=== PATIENT | male | born 1980 | race Caucasian/White ===

== ENCOUNTER 2017-06-11 11:08 | Emergency (ER) | payer SELFPAY | END 2017-06-11 12:29 | disposition home or self-care (01) | LOC: ERS 11:08 | DX: M54.5 Low back pain (principal); G89.29 Other chronic pain; I10 Essential (primary) hypertension; F31.9 Bipolar disorder, unspecified; F20.9 Schizophrenia, unspecified; F90.9 Attention-deficit hyperactivity disorder, unspecified type; F41.9 Anxiety disorder, unspecified; F43.10 Post-traumatic stress disorder, unspecified; F17.210 Nicotine dependence, cigarettes, uncomplicated; X50.1XXA Overexertion from prolonged static or awkward postures, initial encounter | CPT/HCPCS: 99283 ==

== ENCOUNTER 2018-01-04 14:09 | Observation (INO) | payer SELFPAY ==
--- NOTE | 2018-01-04 14:49 | RAD ---
PORTABLE CHEST 1 VIEW: DATE: 01/04/18. TIME: 2:29 p.m. HISTORY: Abdominal pain. FINDINGS: The heart size is normal. No focal areas of consolidation, pneumothoraces, or pleural effusions are seen. IMPRESSION: No radiographic evidence of acute cardiopulmonary process. POS: [facility]
[2018-01-04] MEDS ORDERED: Dicyclomine 20 MG TAB ONE (15:23)
[2018-01-04 16:10] LABS: Acetaminophen Less than 6.0 mcg/mL (10.0-30.0); Alcohol Less than 10 mg/dL (Less than 10); Salicylate Less than 8.0 mg/dL (15.0-30.0)
[2018-01-04 16:15] LABS: Bilirubin Negative (Negative); Blood, Urine Negative (Negative); Clarity CLEAR (Clear); Glucose, Urine (Dipstick) Negative (Negative); Leukocyte Negative (Negative); Nitrite Negative (Negative); Protein, Urine (Dipstick) Negative (Neg-Trace); Urobilinogen 0.2 mg/dL (0.2-1.0)
[2018-01-04 16:21] LABS: Specific Gravity, Urine Greater than 1.060 (1.002-1.036)
[2018-01-04 16:28] LABS: Amphetamine Not Detected (NotDetected); Barbiturates Screen Not Detected (NotDetected); Benzodiazepine Screen Not Detected (NotDetected); Cocaine Metabolite Screen Not Detected (NotDetected); Medtox Control Line Valid? VALID (VALID); Medtox Reader # READER 1; Methadone Not Detected (NotDetected); Methamphetamine Not Detected (NotDetected); Opiate Screen Detected (NotDetected); Oxycodone Screen Not Detected (NotDetected); Phencyclidine (PCP) Not Detected (NotDetected); THC/Cannabinoid Screen Detected (NotDetected); Tricyclic Screen Not Detected (NotDetected)
[2018-01-04] MEDS ORDERED: Ondansetron ODT 4 MG TAB SL PRN (17:17)
[2018-01-04] MEDS ORDERED: Ondansetron HCl/PF 4 MG/2 ML Vial IVP PRN (17:17)
[2018-01-04] MEDS ORDERED: HYDROcodone/Acetaminophen 5/325 mg Tablet PO PRN ×2 (17:17)
[2018-01-04] MEDS ORDERED: Sodium Chloride 0.9% 1,000 ML IV SCH (17:17)
[2018-01-04] MEDS ORDERED: Acetaminophen 325 MG TAB PO PRN (17:17)
[2018-01-04 17:31] VITALS: BMI 37.5
[2018-01-04] MEDS: Sodium Chloride 0.9% 1,000 ML IV SCH (18:15)
[2018-01-04] MEDS: Morphine 4 MG/ML VIAL SLOW IVP PRN (20:29)
[2018-01-04] MEDS ORDERED: Ketorolac Tromethamine 30 MG/ML VIAL IVP SCH (23:59)
[2018-01-05] MEDS: Morphine 4 MG/ML VIAL SLOW IVP PRN ×3 (01:18→09:55)
--- NOTE | 2018-01-05 01:58 | HP ---
DATE OF ADMISSION: 01/04/2018 CHIEF COMPLAINT: Abdominal pain. HISTORY OF PRESENT ILLNESS: Mr. Wallace is a 37-year-old, white male with past medical history of schi zophrenia, came because of acute onset of abdominal pain going on for the last 3 days. His pain is l frieda severe cramping started in the left flank and radiates to the front of the abdomen and left lower quadrant. He says the pain is constant and he waited for 2 to 3 days at home and then decided to go to the hospital. He went into the hospital where he was evaluated. He had an elevated white cell c ount, but no fever. The ER doctor in the outside hospital felt he has sepsis and peritonitis. He wa s transferred to the [facility] ER where he was evaluated and found to have leukocytosis. Otherwis e, everything was unremarkable including CT scan of the abdomen. He is being admitted because of his leukocytosis and abdominal pain. The patient also says he has got some nausea, vomiting, and diarrh ea. PAST MEDICAL HISTORY: Schizophrenia. PAST SURGICAL HISTORY: Nothing significant. CURRENT MEDICATIONS: The patient receives the injectable medication from [facility] twice monthly. ALLERGIES: To LITHIUM, SEROQUEL, SULFA. SOCIAL HISTORY: Patient lives with family. Smokes 1-2 packs a day. No history of alcohol intake. REVIEW OF SYSTEMS: Unremarkable except for the abdominal pain, nausea, vomiting. PHYSICAL EXAMINATION: GENERAL: The patient is alert, awake, oriented x3. VITAL SIGNS: Temperature 98, pulse 90, respirations 20, blood pressure 120/70. HEENT: Head is normocephalic, atraumatic. Pupils equal and reactive. Nasopharynx is pink, moist. NECK: Supple. No JVD. LUNGS: Bilateral air entry, no rales, no rhonchi. CARDIOVASCULAR: S1, S2 regular. ABDOMEN: Soft. No guarding. No rigidity. Tender in the lower abdomen, left lower quadrant and lef t flank area. CENTRAL NERVOUS SYSTEM: No focal deficit. LABORATORY AND X-RAY FINDINGS: CBC shows WBC 21.8, hemoglobin 17, hematocrit 52, platelets 412. Dif ferential count, neutrophils 70%, bands 2%. Metabolic panel: Sodium 135, potassium 3.3, chloride 97 , BUN 27, creatinine 1.7, glucose 123. Lactic acid 2.8. Urinalysis showed wbc's 0-3, rbc's 0-3, no bacteria. Urine drug screen positive for cannabinoids and opiates. Chest x-ray negative. CT scan o f the abdomen unremarkable except diffuse hepatic steatosis. EKG shows normal sinus rhythm, no acute ST-T wave changes seen. ASSESSMENT: 1. Abdominal pain, left flank pain, rule out nephrolithiasis. 2. Leukocytosis. PLAN: 1. Vital signs q.4 hours. 2. Activity: As tolerated. 3. Allergies: NKDA. 4. IV fluids, normal saline at 100 mL per hour. 5. Levaquin 750 IV piggyback daily. 6. Morphine 2 mg IVP q.6 hours p.r.n. 7. Urology consult. 8. CT scan of abdomen and stone protocol.
[2018-01-05] MEDS: Sodium Chloride 0.9% 1,000 ML IV SCH (04:32)
[2018-01-05 04:51] LABS: #Basophils 0.1 thou/uL (0.0-0.2); #Eosinphils 0.4 thou/uL (0.0-0.7); #Lymphocytes 4.2 thou/uL (1.20-3.40); #Monocytes 1.3 thou/uL (0.11-0.59); #Neutrophils 7.1 thou/uL (1.40-6.50); %Basophils 0.4 % (0.0-1.0); %Eosinophils 3.2 % (0.0-10.0); %Lymphocytes 32.1 % (21.0-51.0); %Monocytes 9.8 % (0.0-10.0); %Neutrophils 54.5 % (42.0-75.0); Hemoglobin 13.7 g/dL (14.0-18.0); Mean Corpuscular HGB CONC 35.1 g/dL (32.0-36.0); Mean Corpuscular Hemoglobin 32.9 pg (27.0-31.0); Mean Corpuscular Volume 93.8 fl (80.0-94.0); Mean Platelet Volume 6.6 fL (7.4-10.4); Platelet Count 251 thou/uL (130-400); RBC Distribution Width 12.7 % (11.5-14.5); Red Blood Cell (RBC) Count 4.17 mill/uL (4.70-6.10); White Blood Cell (WBC) Count 13.1 thou/uL (4.8-10.8)
[2018-01-05 04:54] LABS: Anion Gap 9 mmol/L (10-20); BUN (Urea Nitrogen) 17 mg/dL (8.9-20.6); Calc. Creatinine Clearance 186 mL/min (70-130); Calcium 8.1 mg/dL (7.8-10.44); Carbon Dioxide 24 mmol/L (22-29); Chloride 105 mmol/L (98-107); Estimated GFR-MDRD Greater than 90; Glucose 93 mg/dL (70-105); Potassium 3.4 mmol/L (3.5-5.1); Sodium 135 mmol/L (136-145)
[2018-01-05 08:25] VITALS: TEMP 97.9
--- NOTE | 2018-01-05 10:08 | CT ---
CT ABDOMEN AND PELVIS PERFORMED WITHOUT INTRAVENOUS CONTRAST ENHANCEMENT: Date: 01/05/18 HISTORY: Nausea, vomiting, and abdominal pain x2 days. COMPARISON: Prior day's study. FINDINGS: Lung bases show some linear atelectatic change. There are diffuse fatty changes of the liver. The spleen is within normal limits of size. Pancreas an d gallbladder regions appear unremarkable. Right and left adrenal glands, and right and left kidneys are normal in size. Small hyperdensity is s een involving the posterolateral cortex of the lower pole of the right kidney. I am not certain of th e significance of this. It appears to be much too linear to represent a hemorrhagic cyst. In reviewin g the previous CT examination, as well as an additional CT of 08/25/15, you could not see this densit y on the previous contrast studies. I doubt that this is of any clinical significance. It could indic ate some type of calcification, possibly related to a vascular structure. There are no perinephric ch anges associated with this. There is no significant periaortic or mesenteric adenopathy. CT of pelvis was performed without contrast enhancement. The appendix is normal. No adenopathy, mass, or free fluid. IMPRESSION: 1. Diffuse fatty changes of the liver. 2. Linear high attenuation density seen in the lower pole of the right kidney, not felt to be of any definite clinical significance. 3. No acute abnormalities of the abdomen or pelvis. 4. No signs of renal or ureteral calculi. POS: [facility]
[2018-01-05] MEDS ORDERED: Potassium Chloride 20 MEQ TAB PO SCH (10:45)
[2018-01-05] MEDS ORDERED: Acetaminophen 325 MG TAB PO PRN (11:09)
[2018-01-05 11:18] VITALS: BP 95/59
--- NOTE | 2018-01-05 11:56 | CON ---
DATE OF CONSULTATION: 01/05/2018 REFERRING: Aaron Brooks M.D. HISTORY OF PRESENT ILLNESS: Mr. Wallace is a pleasant 37-year-old white male with history of schizophrenia, who presented to the emergency room due to left flank and abdominal pain for the last 3 days. He states that preceding this, he has been walking to work 2-3 miles, lifting heavy objects. The pain was initially constant, now it is intermittent. Due to persistent discomfort, he presented to the emergency room. CT at an outside facility was grossly unremarkable, however, was transferred due to leukocytosis of 21,000. He also relates decreased urine output for the last 2-3 days; however, has had significant nausea, vomiting with decreased oral intake. Previously, he had no issues voiding, denies history of dysuria, gross hematuria, kidney stone, history of STDs. is at bedside. PAST MEDICAL HISTORY: Schizophrenia, bipolar. PAST SURGICAL HISTORY: None. CURRENT MEDICATIONS: Include Levaquin, morphine, IV fluids at 100 mL an hour. ALLERGIES: LITHIUM, SEROQUEL and SULFA. SOCIAL HISTORY: Lives with his , 1-2 packs per day. Denies illicit or alcohol abuse. A 10-point review of systems as above, otherwise noncontributory. PHYSICAL EXAMINATION: VITAL SIGNS: Stable. He is afebrile, appears to be comfortable. HEENT: Unremarkable. HEART: Regular rate. LUNGS: Clear. ABDOMEN: Soft, nontender, nondistended. No suprapubic tenderness or CVA tenderness or suprapubic pain. GENITOURINARY: Circumcised. Meatus is unremarkable. Testes descended with no evidence of intratesticular mass. EXTREMITIES: No cyanosis, clubbing, edema. NEUROLOGIC: No gross focal deficits. PERTINENT LABORATORY DATA: Chest x-ray negative. White count on presentation 21, currently 13; hemoglobin 13, platelet 251. BUN 17, creatinine 0.8, admitting creatinine is 1.7. Urinalysis is grossly unremarkable. Lactic acid on admission mildly elevated at 2.8. Repeat CT stone protocol today demonstrates no evidence of hydroureteronephrosis, no renal or ureteral calculi , no acute pathology is found, incidental diffuse fatty liver. There was an incidental right posterior hyperdense linear density in the parenchyma, this is unlikely of clinical significance per report. IMPRESSION AND PLAN: Mr. Wallace is a 37-year-old male who presented with left flank pain with leukocytosis, renal insufficiency. CT demonstrates no evidence of obstructive uropathy. With IV hydration, he has had good urine output at 850 mL clear. There is no acute pathology of concern warranting intervention. Recommend continuing IV fluid resuscitation. Renal insufficiency is prerenal. Right hyperdense linear density is unlikely of clinical significance. He may follow up with me electively for repeat imaging in 6-12-month interval. will sign off, call if any questions or concerns. Addendum: Informed by nursing staff the patient left AMA, his morphine was discontinued by primary care. GI consult was advised however he left AMA. CIELO
--- NOTE | 2018-01-07 14:32 | DIS ---
DATE OF ADMISSION: 01/04/2018 DATE OF DISCHARGE: 01/05/2018 ADMITTING DIAGNOSES: 1. Abdominal pain, left flank pain, rule out nephrolithiasis. 2. Leukocytosis. FINAL DIAGNOSES: 1. Abdominal pain resolved, left flank pain resolved. No evidence of nephrolithiasis. 2. Leukocytosis, improved. BRIEF SUMMARY OF HOSPITAL COURSE: Mr. Wallace is a 37-year-old male admitted because of acut e abdominal pain. The patient was seen in the [facility] transferred to [place] and they s uspected to have sepsis but he did not have fever. He did not have evidence of any infection. He palmer d leukocytosis, but it came down next day to 13,000. CT scan of the abdomen with stone protocol was done. It did not reveal any evidence of any nephrolithiasis. A consultation was done with Urology. The patient was seen by Dr. Sorensen who felt the patient did not have any obstructive uropathy. No evidence of any urological issues and suggested to continue with IV fluids, but the patient was s tarted on morphine for his abdominal pain initially. After all the test came back negative, his morp jaymie was discontinued because the patient became hypotensive on morphine and patient was demanding mo rphine every 4 hours for his pain, but once the morphine was stopped, the patient did not want to sta y in the hospital. He was advised to have a GI evaluation in view of his abdominal pain since there is no nephrolithiasis, but patient declined he did not want to stay in the hospital. He signed AMA a nd left. It is clear that the patient was looking for his pain medications. He did have some histor y of pain medication abuse. So, patient lives in [place], he is advised to see primary care doctor in [place].
== END 2018-01-05 11:42 | disposition left against medical advice (07) ==
LOC: ERS 14:09 → 2SW 16:34
PROVIDERS: ADMIT Internal Medicine; ATTEND Internal Medicine
DX: R10.9 Unspecified abdominal pain (principal); F20.9 Schizophrenia, unspecified; F31.9 Bipolar disorder, unspecified; D72.829 Elevated white blood cell count, unspecified; F17.210 Nicotine dependence, cigarettes, uncomplicated; Z88.2 Allergy status to sulfonamides; Z88.8 Allergy status to other drugs, medicaments and biological substances; Z79.899 Other long term (current) drug therapy
CPT/HCPCS: 36415; 71045; 74176; 80048; 80306; 80307; 81003; 85025; 93005; 96361; 96365; 96367; 96375; A4216; G0378; J1956; J2270; J3370

== ENCOUNTER 2018-01-19 11:18 | Inpatient (IN) | payer SELFPAY ==
[2018-01-19] MEDS ORDERED: Morphine 4 MG/ML VIAL ONE ×2 (11:39→14:05)
[2018-01-19] MEDS ORDERED: Ketorolac Tromethamine 30 MG/ML VIAL ONE (11:39)
--- NOTE | 2018-01-19 13:55 | CT ---
CT ABDOMEN AND PELVIS WITH IV AND ORAL CONTRAST: Date: 01/19/18 HISTORY: 37-year-old male with abdominal pain. FINDINGS: Comparison made with exam of 01/04/18. There are mild patchy infiltrates at the lung bases. Changes of fatty infiltration of the liver are a gain seen. The spleen, pancreas, adrenal glands, and kidneys are normal. No calcified gallstones are identified. Small splenules are again seen. The appendix is normal. Small, fat-containing inguinal he rnia are present. No free air, free fluid, or lymphadenopathy seen in the abdomen or pelvis. There is mild dilatation of a loop of small bowel in the left upper quadrant. There are vascular calcifications without evidence of aneurysmal dilatation of the abdominal aorta. T here are mild degenerative changes in the spine. Small soft tissue densities in the gluteal fat are a gain noted. IMPRESSION: 1. Fatty liver. 2. No evidence of appendicitis. 3. Mildly dilated loop of small bowel in the left upper quadrant. Partial obstruction or localized i leus. POS: [facility]
[2018-01-19] MEDS ORDERED: Lidocaine 2% Jelly 5 ML TUBE ONE (14:05)
[2018-01-19] MEDS ORDERED: Benzocaine 20% Spray 60 ML CAN ONE (14:06)
--- NOTE | 2018-01-19 14:42 | RAD ---
ABDOMEN 1 VIEW: Date: 01/19/18 HISTORY: 37-year-old male who presents with abdominal pain for NG tube placement location. FINDINGS: NG tube is in satisfactory location within the region of the fundus of the stomach. Nonobstructing bi lateral renal opacified collecting systems are noted. IMPRESSION: NG tube in satisfactory location. POS: [facility]
[2018-01-19] MEDS ORDERED: Sodium Chloride 0.9% 1,000 ML IV SCH (15:45)
[2018-01-19] MEDS ORDERED: Ondansetron HCl/PF 4 MG/2 ML Vial IVP PRN (15:45)
[2018-01-19 16:22] VITALS: BMI 37.8
[2018-01-19] MEDS: D5 1/2 NS w/20 mEq KCL 1,000 ML IV SCH (16:57)
[2018-01-19] MEDS: Sodium Chloride 0.9% 1,000 ML IV SCH (16:58)
[2018-01-19] MEDS ORDERED: ISOVUE-370 76%-LOCM 1 ML ONE (18:30)
--- NOTE | 2018-01-19 18:31 | HP ---
CHIEF COMPLAINT: Midepigastric abdominal pain. HISTORY: A 37-year-old male who was hospitalized about a month ago with the same pain which is descr ibed as mid epigastric pain. This pain began again last night. No radiation, associated with nausea , vomiting, no fevers or chills. He says he has been 2 days since he passed bowel movement or flatus . He denies any rectal bleeding. No family history of colon cancer. Again, he was recently domenica manzanares. He was supposed to have had a GI evaluation, but left AMA because he said he felt better. PAST MEDICAL HISTORY: Significant for bipolar and schizophrenia. 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 MEDICATIONS: He gets a shot of something from [facility] monthly. ALLERGIES: SULFA, SEROQUEL and LITHIUM. SOCIAL HISTORY: He is . He works at [employer], smokes one half pack per day. No alcohol. FAMILY HISTORY: Mother has lung cancer. PHYSICAL EXAMINATION: VITAL SIGNS: Temperature 97.8, pulse 70, blood pressure 109/72. GENERAL: He is awake, alert. NG is in, minimal out. HEENT: Otherwise, unremarkable. LUNGS: Clear. HEART: Regular rate and rhythm. ABDOMEN: Soft, diffusely tender. No palpable hernias, no palpable masses. EXTREMITIES: Unremarkable. LABORATORY AND X-RAY FINDINGS: His white count is 12.8, H&H 15 and 46, platelet count 344. Electrol ytes are fine while his sodium is low at 135, potassium 3.4, CO2 17. His glucose is 139. His creati nine is 0.99. CT scan shows some mild dilatation of the proximal small bowel. He does have small in guinal hernias. ASSESSMENT: Ileus versus partial small-bowel obstruction. PLAN: NG suction, IV hydration, small bowel follow-through in the morning.
[2018-01-19] MEDS: Morphine 4 MG/ML VIAL SLOW IVP PRN (23:59)
[2018-01-20] MEDS: D5 1/2 NS w/20 mEq KCL 1,000 ML IV SCH ×3 (01:42→17:14)
[2018-01-20] MEDS: Morphine 4 MG/ML VIAL SLOW IVP PRN ×4 (03:09→13:05)
[2018-01-20] MEDS: Sodium Chloride 0.9% 1,000 ML IV SCH (05:04)
[2018-01-20] MEDS: Pantoprazole 40 MG VIAL IVP SCH (08:31)
--- NOTE | 2018-01-20 10:15 | RAD ---
ABDOMEN 1 VIEW: Date: 01/20/18 HISTORY: 37-year-old male with history of follow-up small bowel obstruction. FINDINGS: NG tube is in place. Contrast media given at the time of the prior CT is progressed in the colon. The re is some contrast media within the bladder. No evidence of abnormally dilated small bowel loops. IMPRESSION: Unremarkable abdomen 1 view. If there remains any clinical concern for small bowel obstruction, a fol low-up Gastrografin small bowel might be of benefit. POS: [facility]
--- NOTE | 2018-01-20 13:35 | RAD ---
SMALL BOWEL SERIES: Date: 01/20/18 HISTORY: Small bowel obstruction. FINDINGS: A small bowel series was performed following the instillation of Gastrografin by NG tube. Initial sco ut film demonstrates small amount of residual contrast in the colon and a large amount of contrast in a distended urinary bladder. Repeat x-ray was performed after the patient was asked to empty the uri nary bladder. There is normal flow of contrast from the loops of small bowel into the colon. A normal appearing he endix is seen. No abnormal loop dilatation or separation is identified. The contrast reaches the colo n in 40 minutes. IMPRESSION: No evidence of small bowel obstruction. POS: [facility]
[2018-01-20] MEDS ORDERED: Ketorolac Tromethamine 30 MG/ML VIAL IVP SCH (15:30)
[2018-01-20 16:01] LABS: #Basophils 0.1 thou/uL (0.0-0.2); #Eosinphils 0.3 thou/uL (0.0-0.7); #Lymphocytes 1.8 thou/uL (1.20-3.40); #Monocytes 0.8 thou/uL (0.11-0.59); #Neutrophils 7.8 thou/uL (1.40-6.50); %Basophils 0.6 % (0.0-1.0); %Eosinophils 2.8 % (0.0-10.0); %Lymphocytes 16.9 % (21.0-51.0); %Neutrophils 72.7 % (42.0-75.0); Hemoglobin 13.7 g/dL (14.0-18.0); Mean Corpuscular HGB CONC 36.1 g/dL (32.0-36.0); Mean Corpuscular Hemoglobin 33.9 pg (27.0-31.0); Mean Platelet Volume 6.5 fL (7.4-10.4); Platelet Count 249 thou/uL (130-400); RBC Distribution Width 12.4 % (11.5-14.5); Red Blood Cell (RBC) Count 4.05 mill/uL (4.70-6.10); White Blood Cell (WBC) Count 10.7 thou/uL (4.8-10.8)
--- NOTE | 2018-01-20 16:50 | ULT ---
GALLBLADDER ULTRASOUND: HISTORY: Epigastric pain. FINDINGS: Images of the liver show increased echogenicity, consistent with fatty infiltration. There are areas of fatty sparing. The gallbladder is mildly distended. There is no evidence of gallstones identified. No evidence of gallbladder wall thickening. The technologist describes a negative Tinoco sign. The common duct is of normal caliber, at 4 to 5 mm. The pancreas is obscured. The right kidney shows a mid pole cyst, measuring 1.5 to 2 cm. No hydronephrosis. IMPRESSION: Evidence of hepatic steatosis. Gallbladder ultrasound otherwise unremarkable. POS: [facility]
[2018-01-20] MEDS ORDERED: MD-Gastroview 120 ML BOT ONE (18:38)
[2018-01-20] MEDS ORDERED: GoLYTELY 4,000 ml Bottle PO SCH (21:30)
[2018-01-21] MEDS: D5 1/2 NS w/20 mEq KCL 1,000 ML IV SCH ×2 (01:45→19:04)
--- NOTE | 2018-01-21 04:45 | CON ---
DATE OF CONSULTATION: 01/20/2018 REASON FOR CONSULTATION: Nausea, vomiting, recurrent midepigastric abdominal pain. CONSULTING PHYSICIAN: Charly Lewis M.D. HISTORY OF PRESENT ILLNESS: The patient is a 37-year-old male with past medical history of bipolar d isorder and schizophrenia who is presenting with acute onset of recurrent midepigastric abdominal toñito n. He was admitted to the hospital approximately 3 weeks ago with midepigastric abdominal pain that was felt to be due to possible partial small-bowel obstruction. However, he had spontaneous resoluti on of his abdominal pain and subsequently left the hospital AMA. He was in his usual state of health until approximately 3 days ago when he had recurrence of this midepigastric abdominal pain. The toñito n is characterized as a shooting, cramping type pain, which would radiate to the left upper quadrant, but would sometimes radiate to the generalized abdomen would be intermittent meaning he would have n o pain between the episodes between in December to now, it would reach a severity of approximately 9/10. He did not endorse any clear exacerbating factors, but did state that his symptoms would improve with administration of morphine as well as taking hot showers. In relation to his hot showers, he would take anywhere between 5 and 15 hot showers a day to relieve his symptoms, which would then returned f or approximately 20-30 minutes after completion of his shower. This is also associated with increase d nausea and vomiting during these discrete episodes of abdominal pain where he would have approximat fernandez 10-20 discrete episodes of vomiting per day. Currently, he states that his abdominal pain has re solved and he denies any nausea, vomiting, fevers, chills, shortness of breath, abdominal pain, diarr hea, constipation or GI bleeding. He denies any use of NSAIDs as an outpatient and only takes one me dication Depo injection that he received from [facility]. REVIEW OF SYSTEMS: A 10-category review of systems was obtained with all responses negative except f or the pertinent positive as listed in the HPI. PAST MEDICAL HISTORY: As per HPI. PAST SURGICAL HISTORY: Scalp tumor resection as well as irrigation and drainage of a Staph infection in his groin. FAMILY HISTORY: Lung cancer (mother), denies any GI malignancies. SOCIAL HISTORY: Denies any alcohol use, but does smoke approximately 2 packs of cigarettes per day. He also smokes about two joints every 2-3 days. OUTPATIENT MEDICATIONS: He received a Depo injection from [facility], most likely [facility]. ALLERGIES: SULFA, SEROQUEL, and LITHIUM. PHYSICAL EXAMINATION: VITAL SIGNS: Temperature 97.6, pulse 72, blood pressure 138/83, respiratory rate 20, satting 98% on room air. GENERAL: The patient is lying in bed in no acute distress. Alert and oriented x4. HEENT: Neck supple. No JVD noted. CARDIOVASCULAR: Regular rate and rhythm with no discernible murmurs, gallops, or rubs. RESPIRATORY: Clear to auscultation bilaterally with no discernible wheezes or rales. ABDOMEN: Normoactive bowel sounds, soft, nondistended. Tenderness to palpation in the midepigastric region only. EXTREMITIES: No cyanosis, clubbing or edema. LABORATORY DATA: CBC with a white blood cell count of 10.7, hemoglobin 13.7, hematocrit 38.1, platel ets 249. Chemistry with a sodium of 135, potassium 3.4, chloride 100, CO2 of 17, BUN 13, creatinine 0.99, glucose 139, AST 35, ALT 38, alkaline phosphatase 88, total bilirubin 1.5, lipase 11, direct bi lirubin 0.4. Drug of abuse screen was positive for opiates and marijuana. IMAGING DATA: CT abdomen and pelvis obtained on 01/19/2018 showed mildly dilated loop of small bowel in the left upper quadrant concerning for possible partial obstruction or ileus. Right upper quadra nt ultrasound obtained on 01/20/2018 showed hepatic steatosis, but no gallbladder pathology. Small b owel follow through obtained on 01/20/2018 showed no evidence of small-bowel obstruction. ASSESSMENT AND PLAN: The patient is a 37-year-old male with past medical history of bipolar disorder , schizophrenia, and tobacco abuse and marijuana abuse presenting with midepigastric abdominal pain. Midepigastric abdominal pain. The patient is presenting with a recurrent episode of midepigastric ab dominal pain characterized as a sharp shooting, cramping type pain that would start in the midepigast rium and generalized to the entire abdomen. With this particular abdominal pain, it was associated w ith significantly increased nausea and vomiting, having approximately 10-20 discrete episodes of emes is per day. However, what is peculiar is that his symptoms would be almost completely relieved with the use of hot showers to the point where he was taking anywhere between 5 and 15 hot showers per day . Given this finding or given this history, the most likely explanation would be cannabinoid hyperem esis syndrome generating all the above as it is the only syndrome that is alleviated with the use of hot showers believed to be from hypothalamic thermal regulatory dysregulation. However, differential could also include gastritis, peptic ulcer disease, inflammatory bowel disease, colonic malignancy, gastric malignancy, partial small-bowel obstruction (less likely) and/or colitis. RECOMMENDATIONS: 1. Given the vague nature of his abdominal pain in the midepigastrium it could have either an upper gastrointestinal or lower gastrointestinal source, so I will plan for both EGD and colonoscopy tomorr ow morning. 2. Please place the patient n.p.o. at midnight in anticipation for the procedure for tomorrow gael lima 3. Kaylene graham ordered tonight for adequate visualization of the colonic mucosa tomorrow. 4. Recommend marijuana cessation. This was strongly stressed to the patient. We will continue to monitor. Please call with any questions.
[2018-01-21 05:50] LABS: #Basophils 0.1 thou/uL (0.0-0.2); #Eosinphils 0.4 thou/uL (0.0-0.7); #Monocytes 0.7 thou/uL (0.11-0.59); #Neutrophils 3.5 thou/uL (1.40-6.50); %Basophils 0.9 % (0.0-1.0); %Eosinophils 5.7 % (0.0-10.0); %Lymphocytes 39.4 % (21.0-51.0); %Monocytes 8.7 % (0.0-10.0); %Neutrophils 45.3 % (42.0-75.0); Hemoglobin 12.4 g/dL (14.0-18.0); Mean Corpuscular Hemoglobin 32.8 pg (27.0-31.0); Mean Corpuscular Volume 93.8 fl (80.0-94.0); Mean Platelet Volume 6.7 fL (7.4-10.4); Platelet Count 243 thou/uL (130-400); RBC Distribution Width 12.2 % (11.5-14.5); Red Blood Cell (RBC) Count 3.78 mill/uL (4.70-6.10); White Blood Cell (WBC) Count 7.7 thou/uL (4.8-10.8)
[2018-01-21] MEDS ORDERED: Ketamine 50 MG/ML VIAL ONE (06:58)
[2018-01-21] MEDS ORDERED: Midazolam HCl 2 mg/2 ml Vial ONE (07:59)
[2018-01-21] MEDS ORDERED: Ondansetron HCl/PF 4 MG/2 ML Vial IVP PRN (08:47)
[2018-01-21] MEDS ORDERED: Promethazine HCl 25 MG/ML VIAL SLOW IVP PRN (08:47)
[2018-01-21] MEDS ORDERED: Promethazine HCl 25 MG/ML VIAL IM PRN (08:47)
[2018-01-21] MEDS ORDERED: Fentanyl 100 MCG/2 ML VIAL ONE (08:49)
[2018-01-21] MEDS: Pantoprazole 40 MG VIAL IVP SCH (09:28)
--- NOTE | 2018-01-21 10:17 | OP ---
DATE OF PROCEDURE: 01/21/2018 PROCEDURES: Esophagogastroduodenoscopy with biopsy and colonoscopy with biopsy. INDICATION FOR PROCEDURE: Nausea, vomiting, and midepigastric abdominal pain. DESCRIPTION OF PROCEDURE: After the risks and benefits of the procedures were explained to the patie nt including risks of bleeding, infection, perforation, reactions to anesthesia and/or pain, informed consent was obtained. The patient was then taken to the endoscopy suite where deep sedation was adm inistered via propofol and anesthesia support. After adequate sedation was achieved, the standard ga stroscope was introduced into the mouth with intubation of the esophagus, stomach and proximal small intestine with the findings listed below. Upon completion of the upper endoscopy, all equipment was removed and the patient's bed was rotated 180 degrees in preparation for the colonoscopy. After a di gital rectal examination, the standard colonoscope was introduced into the rectum and advanced all th e way to the terminal ileum with the findings listed below. The colonoscope was advanced without dif ficulty with the quality of the prep being good with a small amount of solid stool remaining within t he colon, but not effective visualization of the colonic mucosa. The patient tolerated the procedure s well with no immediate perioperative complications. EGD FINDINGS: ESOPHAGUS: Normal appearing mucosa was seen in the proximal, mid and distal esophagus. There was no evidence of erosions, ulcerations, mass lesions or active/recent bleeding. STOMACH: Multiple small erosions measuring between 2-7 mm in size were seen scattered throughout the gastric cardia, fundus and proximal body. There was also intermixed with erosions, scattered superf icial ulcerations. There were linear in format, clean based without any high-risk stigmata of active /recent bleeding. Multiple biopsies were taken from these ulcerations and erosions for evaluation fo r possible H. pylori. Otherwise, normal appearing mucosa was seen in the gastric antrum and incisura . There was no other associated pathology seen during this portion of the exam. DUODENUM: Normal appearing mucosa was seen in both the duodenal bulb and second portion of the duode num. There was no evidence of erosions, ulcerations, mass lesions or active/recent bleeding. COLONOSCOPY FINDINGS: DIGITAL RECTAL EXAMINATION: Normal external exam. COLON FINDINGS: Normal appearing mucosa was seen in the terminal ileum as well as within the cecum, ileocecal valve, and appendiceal orifice. Normal appearing mucosa was also seen in the ascending col on. A 2 mm polyp was seen in the midtransverse colon and completely removed with cold forceps biopsi es. The specimen was retrieved and placed in a jar for pathology review. Normal appearing mucosa wa s seen in the descending, sigmoid colon, and rectum. No abnormalities were seen on rectal retroflexi on. IMPRESSION: 1. Scattered erosions and superficial ulcerations seen in the proximal stomach concerning for repeat ed retching episodes, H. pylori versus NSAID gastritis, status post biopsies. 2. A 2 mm transverse colon polyp, completely removed with cold biopsy forceps. RECOMMENDATIONS: 1. Would continue patient on PPI, but increased to b.i.d. dosing for the next month and then decreas e to daily dosing until repeat EGD is performed. 2. We would repeat EGD in approximately 8-12 weeks for reevaluation of the gastric ulcerations to co nfirm healing. 3. Strongly encourage cessation of marijuana use due to high likelihood of cannabinoid hyperemesis s yndrome contributing to the above upper endoscopy findings. 4. We will follow up on the biopsy results with further care guided by results. With the gastric erosions, ulcerations, this could potentially generate his abdominal pain as well as cannabinoid hyperemesis syndrome. We will sign off at this time with recommendations to have the sukhdeep yaalena follow up in the GI Clinic within 2-3 weeks for review of his current clinical status and biops ies.
[2018-01-21] MEDS ORDERED: HYDROcodone/Acetaminophen 5/325 mg Tablet PO PRN (10:18)
[2018-01-21] MEDS ORDERED: Lidocaine 1% PF 5 ML VIAL ONE (13:36)
[2018-01-21] MEDS ORDERED: PROPOFOL 200 MG/20 ML VIAL ONE (13:36)
[2018-01-21 15:53] VITALS: BP 113/81; TEMP 97.8
== END 2018-01-21 17:57 | disposition home or self-care (01) | DRG 384 ==
LOC: ERS 11:18 → SURG B 15:06
PROVIDERS: ADMIT Surgery; ATTEND Surgery
PROC: 0DB78ZX Excision of Stomach, Pylorus, Via Natural or Artificial Opening Endoscopic, Diagnostic (ICD-10-PCS; principal; 2018-01-21)
PROC: 0DBL8ZX Excision of Transverse Colon, Via Natural or Artificial Opening Endoscopic, Diagnostic (ICD-10-PCS; 2018-01-21)
DX: K25.9 Gastric ulcer, unspecified as acute or chronic, without hemorrhage or perforation (principal); Z88.2 Allergy status to sulfonamides; Z88.8 Allergy status to other drugs, medicaments and biological substances; F31.9 Bipolar disorder, unspecified; F20.9 Schizophrenia, unspecified; F17.210 Nicotine dependence, cigarettes, uncomplicated
CPT/HCPCS: 36415; 74018; 74177; 74250; 76705; 85025; 88305; 88312; 96374; 96375; 96376; 99406; C9113; J1885; J2001; J2250; J2270; J2704; J3010

== ENCOUNTER 2018-11-10 18:31 | Emergency (ER) | payer SELFPAY ==
[2018-11-10] MEDS ORDERED: Ondansetron PF 4 MG/2 ML Vial ONE (19:03)
[2018-11-10] MEDS ORDERED: Morphine 4 MG/ML VIAL ONE ×2 (19:03→22:47)
[2018-11-10 19:08] LABS: #Basophils 0.1 thou/uL (0.0-0.2); #Eosinphils 0.6 thou/uL (0.0-0.7); #Lymphocytes 2.9 thou/uL (1.20-3.40); #Monocytes 0.9 thou/uL (0.11-0.59); #Neutrophils 6.7 thou/uL (1.40-6.50); %Basophils 0.6 % (0.0-1.0); %Eosinophils 5.2 % (0.0-10.0); %Lymphocytes 25.8 % (21.0-51.0); %Monocytes 8.4 % (0.0-10.0); %Neutrophils 59.9 % (42.0-75.0); Hemoglobin 15.3 g/dL (14.0-18.0); Mean Corpuscular HGB CONC 34.5 g/dL (32.0-36.0); Mean Corpuscular Hemoglobin 32.6 pg (27.0-31.0); Mean Corpuscular Volume 94.4 fL (78.0-98.0); Mean Platelet Volume 7.3 fL (7.4-10.4); Platelet Count 272 thou/uL (130-400); RBC Distribution Width 12.1 % (11.5-14.5); Red Blood Cell (RBC) Count 4.68 mill/uL (4.70-6.10); White Blood Cell (WBC) Count 11.1 thou/uL (4.8-10.8)
[2018-11-10 19:25] LABS: Bilirubin Negative (Negative); Blood, Urine Negative (Negative); Clarity CLEAR (Clear); Glucose, Urine (Dipstick) Negative (Negative); Leukocyte Negative (Negative); Nitrite Negative (Negative); Protein, Urine (Dipstick) Negative (Neg-Trace); Specific Gravity, Urine 1.021 (1.002-1.036); Urobilinogen 0.2 mg/dL (0.2-1.0)
[2018-11-10 19:32] LABS: ALT (SGPT) 15 U/L (8-55); AST (SGOT) 13 U/L (5-34); Alkaline Phosphatase 96 U/L (40-150); Anion Gap 11 mmol/L (10-20); BUN (Urea Nitrogen) 6 mg/dL (8.9-20.6); Bilirubin, Total 0.2 mg/dL (0.2-1.2); Calc. Creatinine Clearance 0 mL/min (70-130); Calcium 9.4 mg/dL (7.8-10.44); Carbon Dioxide 29 mmol/L (22-29); Chloride 107 mmol/L (98-107); Estimated GFR-MDRD Greater than 90; Globulin 2.7 g/dL (2.4-3.5); Glucose 89 mg/dL (70-105); Potassium 3.5 mmol/L (3.5-5.1); Protein, Total 6.7 g/dL (6.0-8.3); Sodium 143 mmol/L (136-145)
[2018-11-10] MEDS ORDERED: Azithromycin 250 MG TAB ONE (19:43)
[2018-11-10] MEDS ORDERED: cefTRIAXone\\ROCEPHIN 1 GM VIAL ONE (19:43)
--- NOTE | 2018-11-10 20:10 | ULT ---
SCROTAL ULTRASOUND: 11/10/2018 HISTORY: Area of swelling in the left inguinal canal that is firm and tender to touch. COMPARISON: None. TECHNIQUE: Multiplanar tsai-scale sonographic imaging of the scrotal contents obtained with Doppler interrogatio n of the testicles, including color-flow and spectral analysis. FINDINGS: The right testicle measures 4.3 x 2 x 2.9 cm and demonstrates normal blood flow. There is a nonspecific, vague area of decreased echogenicity within the inferior aspect of the right testicle, measuring 4 x 9 x 5 mm. There is a trace right hydrocele. The left testicle measures 4.6 x 2.4 x 2.5 cm and demonstrates normal blood flow, without evidence fo r mass. There is a trace left hydrocele. Focused ultrasound in the area of left inguinal pain demonstrates n o fluid collection. This area is not swell assessed via ultrasound. If symptoms persist, CT is advi sed. IMPRESSION: 1. Nonspecific vague area of decreased echogenicity within the inferior aspect of the right testicle . This could be on the basis of edema or a very small mass lesion. A non-emergent follow-up urology consultation, as well as a follow-up scrotal ultrasound is advised. 2. No acute findings. 3. Limited assessment of the left inguinal canal demonstrates no evidence for a fluid collection. Frieda short see above discussion. POS: [facility]
[2018-11-10] MEDS ORDERED: Ketorolac Tromethamine 30 MG/ML VIAL ONE (22:47)
[2018-11-12 21:30] LABS: Chlamydia by PCR Not Detected (NotDetected); GC by PCR Not Detected (NotDetected)
== END 2018-11-10 23:55 | disposition home or self-care (01) ==
LOC: ERS 18:31
DX: N49.2 Inflammatory disorders of scrotum (principal); F31.9 Bipolar disorder, unspecified; I10 Essential (primary) hypertension; F17.210 Nicotine dependence, cigarettes, uncomplicated
CPT/HCPCS: 76870; 80053; 81003; 85025; 87086; 87491; 87591; 93976; 96361; 96365; 96367; 96375; 96376; J0696; J1885; J2270; J2405; J3370

== ENCOUNTER 2018-11-20 04:05 | Emergency (ER) | payer SELFPAY ==
[2018-11-20] MEDS ORDERED: Ondansetron PF 4 MG/2 ML Vial ONE (04:19)
[2018-11-20] MEDS ORDERED: Pantoprazole 40 MG VIAL ONE (04:19)
[2018-11-20 05:17] LABS: #Eosinphils 0.1 thou/uL (0.0-0.7); #Monocytes 0.6 thou/uL (0.11-0.59); #Neutrophils 12.8 thou/uL (1.40-6.50); %Basophils 0.1 % (0.0-1.0); %Eosinophils 0.3 % (0.0-10.0); %Lymphocytes 12.9 % (21.0-51.0); %Monocytes 3.8 % (0.0-10.0); %Neutrophils 82.9 % (42.0-75.0); Hemoglobin 15.5 g/dL (14.0-18.0); Mean Corpuscular HGB CONC 33.8 g/dL (32.0-36.0); Mean Corpuscular Hemoglobin 32.3 pg (27.0-31.0); Mean Corpuscular Volume 95.6 fL (78.0-98.0); Mean Platelet Volume 7.3 fL (7.4-10.4); Platelet Count 280 thou/uL (130-400); RBC Distribution Width 12.3 % (11.5-14.5); Red Blood Cell (RBC) Count 4.78 mill/uL (4.70-6.10); White Blood Cell (WBC) Count 15.5 thou/uL (4.8-10.8)
[2018-11-20 05:40] LABS: ALT (SGPT) 20 U/L (8-55); AST (SGOT) 15 U/L (5-34); Albumin 4.6 g/dL (3.5-5.0); Alkaline Phosphatase 86 U/L (40-150); Anion Gap 15 mmol/L (10-20); BUN (Urea Nitrogen) 12 mg/dL (8.9-20.6); Bilirubin, Total 0.6 mg/dL (0.2-1.2); Calc. Creatinine Clearance 0 mL/min (70-130); Calcium 9.9 mg/dL (7.8-10.44); Carbon Dioxide 22 mmol/L (22-29); Chloride 102 mmol/L (98-107); Estimated GFR-MDRD Greater than 90; Globulin 2.9 g/dL (2.4-3.5); Glucose 118 mg/dL (70-105); Lipase 12 U/L (8-78); Potassium 3.9 mmol/L (3.5-5.1); Protein, Total 7.5 g/dL (6.0-8.3); Sodium 135 mmol/L (136-145)
[2018-11-20 06:20] LABS: Bilirubin Negative (Negative); Blood, Urine Negative (Negative); Clarity CLOUDY (Clear); Glucose, Urine (Dipstick) Negative (Negative); Leukocyte Negative (Negative); Nitrite Negative (Negative); Protein, Urine (Dipstick) Negative (Neg-Trace); Specific Gravity, Urine 1.015 (1.002-1.036); Urobilinogen 0.2 mg/dL (0.2-1.0)
[2018-11-20] MEDS ORDERED: Ketorolac Tromethamine 30 MG/ML VIAL ONE (06:58)
--- NOTE | 2018-11-20 07:17 | CT ---
CT OF ABDOMEN AND PELVIS WITH CONTRAST: Date: 11/20/18 CLINICAL HISTORY: Generalized abdominal pain. Reference made to 01/19/18 exam. FINDINGS: There is hepatic steatosis. No focal, acute pathology of the solid abdominal organs otherwise visuali zed. The bowel is incompletely evaluated without the presence of enteric contrast. There is no pneumo peritoneum or free air. Visualized lung bases are clear. No acute osseous pathology. IMPRESSION: Within limitations, no acute process is identified. POS: [facility]
--- NOTE | 2018-11-20 07:43 | RAD ---
SINGLE VIEW CHEST: Date: 11/20/18 COMPARISON: 01/19/18. HISTORY: Abdominal pain. FINDINGS: Single view of the chest shows a normal sized cardiomediastinal silhouette. There is no evidence of c onsolidation, mass, or pleural effusion. The bones are unremarkable. IMPRESSION: No evidence of acute cardiopulmonary disease. POS: [facility]
[2018-11-20] MEDS ORDERED: ISOVUE-370 76%-LOCM 1 ML ONE (09:31)
== END 2018-11-20 07:17 | disposition home or self-care (01) ==
LOC: ERS 04:05
DX: R10.84 Generalized abdominal pain (principal); F31.9 Bipolar disorder, unspecified; I10 Essential (primary) hypertension; F17.210 Nicotine dependence, cigarettes, uncomplicated
CPT/HCPCS: 71045; 74177; 80053; 81003; 83690; 85025; 96372; C9113; J0500; J1885; J2405; Q9966

== ENCOUNTER 2019-05-15 07:34 | Emergency (ER) | payer SELFPAY ==
[2019-05-15] MEDS ORDERED: hydrOXYzine 25 MG TAB ONE (07:50)
[2019-05-15] MEDS ORDERED: Ondansetron ODT 4 MG TAB ONE (07:50)
== END 2019-05-15 09:11 | disposition home or self-care (01) ==
LOC: ERS 07:34
DX: F41.0 Panic disorder [episodic paroxysmal anxiety] (principal); I10 Essential (primary) hypertension; F31.9 Bipolar disorder, unspecified; F17.210 Nicotine dependence, cigarettes, uncomplicated; R11.2 Nausea with vomiting, unspecified
CPT/HCPCS: 99283; Q0162

== ENCOUNTER 2019-06-16 08:45 | Emergency (ER) | payer SELFPAY ==
[2019-06-16 09:21] LABS: #Basophils 0.1 thou/uL (0.0-0.2); #Eosinphils 0.4 thou/uL (0.0-0.7); #Lymphocytes 3.6 thou/uL (1.20-3.40); #Monocytes 0.9 thou/uL (0.11-0.59); #Neutrophils 7.3 thou/uL (1.40-6.50); %Basophils 0.8 % (0.0-1.0); %Eosinophils 3.3 % (0.0-10.0); %Lymphocytes 29.3 % (21.0-51.0); %Monocytes 7.4 % (0.0-10.0); %Neutrophils 59.2 % (42.0-75.0); Hemoglobin 17.1 g/dL (14.0-18.0); Mean Corpuscular HGB CONC 33.7 g/dL (32.0-36.0); Mean Corpuscular Hemoglobin 30.8 pg (27.0-31.0); Mean Corpuscular Volume 91.4 fL (78.0-98.0); Mean Platelet Volume 7.1 fL (7.4-10.4); Platelet Count 368 thou/uL (130-400); RBC Distribution Width 12.7 % (11.5-14.5); Red Blood Cell (RBC) Count 5.56 mill/uL (4.70-6.10); White Blood Cell (WBC) Count 12.3 thou/uL (4.8-10.8)
[2019-06-16] MEDS ORDERED: Lorazepam 2 MG/ML VIAL ONE (09:21)
[2019-06-16 09:35] LABS: ALT (SGPT) 31 U/L (8-55); AST (SGOT) 20 U/L (5-34); Alkaline Phosphatase 92 U/L (40-110); Anion Gap 18 mmol/L (10-20); BUN (Urea Nitrogen) 9 mg/dL (8.9-20.6); Bilirubin, Total 0.5 mg/dL (0.2-1.2); Calc. Creatinine Clearance 0 mL/min (70-130); Calcium 10.8 mg/dL (7.8-10.44); Carbon Dioxide 22 mmol/L (22-29); Chloride 101 mmol/L (98-107); Estimated GFR-MDRD 81; Globulin 3.4 g/dL (2.4-3.5); Glucose 118 mg/dL (70-105); Lipase 39 U/L (8-78); Potassium 3.4 mmol/L (3.5-5.1); Protein, Total 8.4 g/dL (6.0-8.3); Sodium 138 mmol/L (136-145)
--- NOTE | 2019-06-16 09:52 | RAD ---
XR Chest 1 View Portable History: Epigastric pain Comparison: Radiograph chest radiograph November 20, 2018 Findings: Lungs are clear. No pneumothorax or effusion. Cardiac silhouette and mediastinal contours a re within normal limits. No acute osseous abnormality. Impression: No acute intrathoracic abnormality.
[2019-06-16] MEDS ORDERED: Morphine 4 MG/ML VIAL ONE ×2 (09:54→13:21)
[2019-06-16 10:05] LABS: INR-International Normal Ratio 0.9; PTT 28.7 SEC (22.9-36.1); Prothrombin Time 11.8 SEC (12.0-14.7)
--- NOTE | 2019-06-16 10:58 | CT ---
CT Aortic Dissection Protocol History: Chest pain Comparison: Chest radiograph same day Findings: CT angiogram chest and abdomen performed after the intravenous administration of contrast. 3-D rendering provided. Aortic contour is normal without aneurysm, penetrating atherosclerotic ulcer, nor dissection. No retr operitoneal hemorrhage. No pericardial fluid. Heart size is normal. The lungs are clear. No pneumothorax or effusion. Upper abdominal findings are normal. No hydronephrosis. No adenopathy. Incidental note is made of a s plenule. Appendix is visualized and is normal. Impression: No evidence for aortic dissection. No acute inflammatory process within the chest or uppe r abdomen.
[2019-06-16] MEDS ORDERED: Pantoprazole 40 MG VIAL ONE (11:26)
[2019-06-16] MEDS ORDERED: ISOVUE-370 76%-LOCM 1 ML ONE (12:19)
[2019-06-16] MEDS ORDERED: Ondansetron PF 4 MG/2 ML Vial ONE (12:29)
[2019-06-16] MEDS ORDERED: Promethazine HCl 25 MG/ML VIAL ONE (13:26)
== END 2019-06-16 13:55 | disposition home or self-care (01) ==
LOC: ERS 08:45
DX: R10.13 Epigastric pain (principal); I10 Essential (primary) hypertension; F31.9 Bipolar disorder, unspecified; F17.210 Nicotine dependence, cigarettes, uncomplicated
CPT/HCPCS: 71045; 71275; 72191; 74175; 80053; 83690; 84484; 85025; 85610; 85730; 93005; 94760; C9113; J2060; J2270; J2405; J2550; Q9966

== ENCOUNTER 2019-10-01 16:59 | Observation (INO) | payer SELFPAY ==
[~2019-10-01 16:59] MED LIST: Iopamidol-370 76% 500 ML 1 ML ONE
[2019-10-01] MEDS ORDERED: Promethazine HCl 25 MG/ML VIAL ONE (19:07)
[2019-10-01] MEDS ORDERED: Pantoprazole 40 MG VIAL ONE (19:07)
[2019-10-01 19:15] LABS: Hemoglobin 14.7 g/dL (14.0-18.0); Mean Corpuscular HGB CONC 30.4 g/dL (32.0-36.0); Mean Corpuscular Hemoglobin 28.1 pg (27.0-31.0); Mean Corpuscular Volume 92.6 fL (78.0-98.0); Mean Platelet Volume 7.6 fL (7.4-10.4); Platelet Count 308 thou/uL (130-400); RBC Distribution Width 12.5 % (11.5-14.5); Red Blood Cell (RBC) Count 5.24 mill/uL (4.70-6.10); White Blood Cell (WBC) Count 20.3 thou/uL (4.8-10.8)
[2019-10-01 19:25] LABS: ALT (SGPT) 29 U/L (8-55); AST (SGOT) 33 U/L (5-34); Albumin 5.2 g/dL (3.5-5.0); Alkaline Phosphatase 85 U/L (40-110); Anion Gap 19 mmol/L (10-20); BUN (Urea Nitrogen) 30 mg/dL (8.9-20.6); Bilirubin, Total 1.6 mg/dL (0.2-1.2); Calc. Creatinine Clearance 0 mL/min (70-130); Calcium 10.4 mg/dL (7.8-10.44); Carbon Dioxide 23 mmol/L (22-29); Chloride 94 mmol/L (98-107); Estimated GFR-MDRD 42; Globulin 3.4 g/dL (2.4-3.5); Glucose 120 mg/dL (70-105); Lipase 22 U/L (8-78); Potassium 3.3 mmol/L (3.5-5.1); Protein, Total 8.6 g/dL (6.0-8.3); Sodium 133 mmol/L (136-145)
[2019-10-01 19:29] LABS: Band 9 % (5-11); Lymphocytes 6 % (21-51); MDiff Complete? YES; Monocytes 7 % (0-10); Neutrophil 77 % (42-75); Platelet Morphology Comment Appears Adequate; RBC Morphology Normal
--- NOTE | 2019-10-01 19:31 | ULT ---
RIGHT UPPER QUADRANT ULTRASOUND CLINICAL HISTORY: Right upper quadrant pain. COMPARISON: None FINDINGS: Liver:There is diffuse increased echogenicity of the liver with diminished through transmission. The liver is enlarged measuring 18.3 cm. Intrahepatic bile ducts: No intrahepatic or extrahepatic biliary dilation.; Common bile duct: The duct is not well seen. Gallbladder: Normal appearing. Tinoco's sign:None Main portal vein:Patent with hepatopedal flow. Pancreas:Obscured Right kidney: Right kidney measures 11.3 x 5.0 x 6 cm. No focal renal lesion or hydronephrosis. Additional findings: None. IMPRESSION: Hepatomegaly with fatty infiltration. Limitations to the examination due to overlying bowel gas.
[2019-10-01 19:50] LABS: CKMB 7.5 ng/mL (0-6.6)
[2019-10-01 20:29] LABS: Bilirubin Negative (Negative); Blood, Urine Negative (Negative); Clarity Turbid (Clear); Glucose, Urine (Dipstick) Normal (Negative); Leukocyte Negative Leu/uL (Negative); Nitrite Negative (Negative); Protein, Urine (Dipstick) 30 mg/dL (Neg-Trace); RBC/HPF 0-3 HPF (0-3); Squamous Epithelial 0-3 HPF (0-3); Urobilinogen Normal mg/dL (Less than 2)
--- NOTE | 2019-10-01 20:33 | RAD ---
ONE VIEW CHEST: 10/01/19 HISTORY: Abdominal pain with nausea starting one day ago. COMPARISON: 06/16/19. FINDINGS: The cardiac silhouette and pulmonary vasculature are within normal limits. The lungs are clear. There has been no interval change from prior exam. IMPRESSION: No acute cardiopulmonary process. POS: [facility]
[2019-10-01 20:36] LABS: Bacteria/HPF None Seen HPF (None Seen); Calcium Oxalate Crystals 2+ HPF (None Seen)
[2019-10-01 20:37] LABS: Mucous/LPF 1+ LPF (<2+)
[2019-10-01] MEDS ORDERED: Aspirin Chewable 81 MG TAB ONE (21:10)
[2019-10-01] MEDS ORDERED: Nitroglycerin 2% Ointment 1 INCH/1 GM Packet ONE (21:10)
[2019-10-01] MEDS ORDERED: Piperacillin/Tazobactam 4.5 GM VIAL ONE (21:11)
--- NOTE | 2019-10-01 22:01 | CT ---
CT OF THE ABDOMEN AND PELVIS WITH IV CONTRAST INDICATION: Right upper quadrant abdominal pain COMPARISON: CT abdomen and pelvis with contrast dated November 20, 2018 and a CTA aortic dissection greg col dated June 16, 2019 FINDINGS: ABDOMEN: Lung bases: Clear Liver: Prominent fatty infiltration Gallbladder: Normal appearing. Pancreas: Normal. Adrenal glands: Normal. Spleen: Normal. Kidneys and ureters: Normal. No hydronephrosis. Vasculature: There are mild vascular calcifications seen involving the visualized vasculature. Lymph nodes:No lymphadenopathy. Free fluid in abdomen:No free fluid is evident. PELVIS: Small and large bowel: Normal Appendix:Normal Bladder: Normal. Rectal and perirectal soft tissues:Normal. Reproductive structures: Normal. Free fluid in pelvis: No free fluid is evident. Lymphadenopathy pelvis: No lymphadenopathy is evident. Osseous structures: No acute osseous abnormality. No destructive osteolytic or osteoblastic lesion i s identified. There is scattered degenerative and osteoarthritic changes. Soft tissues:Normal. IMPRESSION: 1. Stable prominent fatty liver
[2019-10-01 23:35] LABS: Troponin I 0.015 ng/mL (< 0.028)
[2019-10-02 00:40] VITALS: BMI 33.0
[2019-10-02] MEDS ORDERED: HYDROcodone/Acetaminophen 5/325 mg Tablet PO PRN ×2 (00:51)
[2019-10-02] MEDS ORDERED: Acetaminophen 325 MG TAB PO PRN ×2 (00:51→01:20)
[2019-10-02] MEDS ORDERED: Ondansetron ODT 4 MG TAB SL PRN (00:51)
[2019-10-02] MEDS ORDERED: Ondansetron PF 4 MG/2 ML Vial IVP PRN ×2 (00:51→01:20)
[2019-10-02] MEDS ORDERED: Sodium Chloride 0.9% 1,000 ML IV SCH (01:00)
[2019-10-02] MEDS ORDERED: Ondansetron ODT 4 MG TAB PO PRN (01:20)
[2019-10-02] MEDS ORDERED: Acetaminophen 650 MG Suppository PR PRN (01:20)
[2019-10-02] MEDS ORDERED: diphenhydrAMINE 25 MG CAP PO PRN (01:20)
[2019-10-02] MEDS: Sodium Chloride 0.9% 1,000 ML IV SCH ×3 (02:04→21:00)
--- NOTE | 2019-10-02 02:58 | HP ---
TIME OF ASSESSMENT: 0030. CHIEF COMPLAINT: Excessive vomiting and abdominal pain. HISTORY OF PRESENT ILLNESS: Mr. Wallace is a 39-year-old gentleman, who states he developed severe vomiting yesterday and states he vomited up to 15 times throughout the day, unable to tolerate any oral intake. He states today he began dry heaving and started bringing up dark blood clots. Reports having 5-6 loose stools which appeared black in color as well. The patient reports having diffuse abdominal discomfort. At present, he feels completely better and states the medications helped to completely eliminate his symptoms. The patient reports having these episodes that typically lasts 2-3 days and occur every two months. The patient states the only thing that would make his symptoms better was taking a hot shower and as soon as he would turn the shower off, his symptoms would begin immediately. He admits to smoking marijuana excessively on a daily basis. Of note, he underwent an EGD in January 2018, which showed scattered erosions and superficial ulcerations in the proximal stomach concerning for repeated retching episodes, Helicobacter pylori versus and NSAIDs gastritis. He had a colonoscopy done as well which showed a 2 mm transverse colon polyp that was removed. The patient had been advised at that time to discontinue marijuana use as it was felt he was likely experiencing cannabinoid hyperemesis syndrome contributing to the endoscopic findings. The patient has not ceased marijuana use. He was recommended followup in the GI Clinic. However, he states he does not have insurance and therefore never did followup. EMERGENCY DEPARTMENT COURSE: In the emergency department, the patient had an EKG done showing normal sinus rhythm with a heart rate of 97. He is on given 2 L of normal saline as well as Phenergan and pantoprazole 40 mg IV. The patient had laboratory studies that showed an indeterminate troponin and was treated with aspirin 324 mg as well as Nitro-Bid. It appears that the laboratory studies were also notable for leukocytosis prompting a treatment with antibiotics. The patient was given Zosyn 4.5 g. He is admitted for a viral gastroenteritis. LABORATORY DATA: Laboratory studiesdone showed white count of 20.3, hemoglobin of 14.7, hematocrit of 48.5, platelets 308, neutrophils 77. Sodium , potassium 3.3, chloride 94, BUN 30, creatinine 1.83, GFR 42, glucose 120, calcium 10.6, total bilirubin 1.6, AST 33, ALT 29, alkaline phosphatase 85, CK-MB 7.5, troponin I 0.040. Protein 8.6, albumin 5.2, lipase 22. Urinalysis was notable for 30 of protein, trace ketones, 4-6 white cells, no bacteria, no leukocyte esterase, and negative for nitrites. He had 21 to 50 hyaline casts and 11 to 20 granular casts. IMAGING STUDIES: In the ED, he had an a right upper quadrant ultrasound showing hepatomegaly with fatty infiltration. Chest x-ray showed no acute cardiopulmonary process. He also had a CT of the abdomen and pelvis done with contrast showing stable prominent fatty liver. PAST MEDICAL HISTORY: 1. Hyperlipidemia. 2. Bipolar disorder. 3. GERD. 4. Chronic back pain. PAST SURGICAL HISTORY: 1. Tumor removed from his forehead. 2. Staph from groin area. SOCIAL HISTORY: The patient denies any alcohol use. He reports smoking marijuana excessively. Reports smoking cigarettes, 2 packs per day. FAMILY HISTORY: Noncontributory. ALLERGIES: 1. LITHIUM. 2. QUETIAPINE. 3. SULFA. CURRENT MEDICATIONS: None. PHYSICAL EXAMINATION: GENERAL: The patient appears well developed, well nourished, is in no acute distress. VITAL SIGNS: Temperature 98.6, pulse 95, respirations 18, O2 saturation 96% on room air, blood pressure 111/64. HEENT: Normocephalic and atraumatic. Pupils are equal, round, and reactive to light. Sclerae without icterus. Oropharynx is clear. NECK: Supple without lymphadenopathy. LUNGS: Clear to auscultation bilaterally without wheezes, rales, or rhonchi. CARDIAC: Regular rate and rhythm. ABDOMEN: Soft, nontender, nondistended. Normoactive bowel sounds present. No guarding or rigidity. No renal angle tenderness. EXTREMITIES: No lower leg swelling or edema. NEUROLOGIC: Alert and oriented x3. SKIN: Warm and dry. INVESTIGATIONS: As mentioned above in HPI. IMPRESSION AND PLAN: Mr. Wallace is a 39-year-old gentleman presenting with excessive nausea and vomiting, who is being admitted for management of the following; 1. Intractable nausea and vomiting. The patient apparently has flares every 2 months lasting 2-3 days and has previously undergone endoscopic procedures including EGD as well as colonoscopy. Seen by Dr. Perez in January 2018, at which time, he was found to have scattered erosions and superficial ulcerations in the proximal stomach, felt to be associated to repeated retching episodes as a result of cannabinoid hyperemesis syndrome. This likely has caused his symptoms once again as patient has continued to smoke marijuana excessively. States he does not have insurance, therefore has not been able and will not be able to follow up with the GI Clinic as an outpatient as previously recommended. We will continue Protonix and likely to benefit from any further GI input at this time as his symptoms have completely resolved and further investigations or consultations will be determined by Day Team. 2. Acute kidney injury. The patient received 2 L of normal saline in the emergency department. We will continue with IV fluids. 3. Hypokalemia. We will replace potassium and continue to monitor electrolytes. 4. Leukocytosis, likely reactive. The patient has no signs or symptoms of infection; therefore, we will hold any further antibiotics at this time. Lactic acid drawn and was normal at 1.4. 5. Indeterminate troponin. EKG was normal. The patient denies experiencing any chest pain at any time. His 2nd and 3rd troponins were negative. 6. Deep venous thrombosis prophylaxis. The patient is ambulatory. 7. Code status full. Surrogate decision maker is his , Kristi Wallace. Case will be discussed with attending for further recommendations. Job ID: [id number]
[2019-10-02 04:47] LABS: #Basophils 0.1 thou/uL (0.0-0.2); #Eosinphils 0.1 thou/uL (0.0-0.7); #Lymphocytes 4.2 thou/uL (1.20-3.40); #Monocytes 1.7 thou/uL (0.11-0.59); #Neutrophils 10.9 thou/uL (1.40-6.50); %Basophils 0.5 % (0.0-1.0); %Eosinophils 0.8 % (0.0-10.0); %Lymphocytes 24.7 % (21.0-51.0); %Monocytes 10.2 % (0.0-10.0); %Neutrophils 63.7 % (42.0-75.0); Hemoglobin 15.3 g/dL (14.0-18.0); Mean Corpuscular HGB CONC 34.7 g/dL (32.0-36.0); Mean Corpuscular Hemoglobin 33.1 pg (27.0-31.0); Mean Corpuscular Volume 95.3 fL (78.0-98.0); Mean Platelet Volume 7.2 fL (7.4-10.4); Platelet Count 277 thou/uL (130-400); RBC Distribution Width 12.6 % (11.5-14.5); Red Blood Cell (RBC) Count 4.63 mill/uL (4.70-6.10); White Blood Cell (WBC) Count 17.1 thou/uL (4.8-10.8)
[2019-10-02 05:11] LABS: ALT (SGPT) 22 U/L (8-55); AST (SGOT) 31 U/L (5-34); Albumin 4.4 g/dL (3.5-5.0); Alkaline Phosphatase 67 U/L (40-110); Anion Gap 12 mmol/L (10-20); BUN (Urea Nitrogen) 20 mg/dL (8.9-20.6); Bilirubin, Total 1.1 mg/dL (0.2-1.2); Calc. Creatinine Clearance 140 mL/min (70-130); Calcium 9.1 mg/dL (7.8-10.44); Carbon Dioxide 25 mmol/L (22-29); Chloride 104 mmol/L (98-107); Estimated GFR-MDRD 78; Globulin 2.9 g/dL (2.4-3.5); Glucose 98 mg/dL (70-105); Potassium 3.7 mmol/L (3.5-5.1); Protein, Total 7.3 g/dL (6.0-8.3); Sodium 137 mmol/L (136-145)
[2019-10-02 13:30] LABS: Acetaminophen Less than 6.0 mcg/mL (10.0-30.0); Alcohol Less than 10 mg/dL (Less than 10); Salicylate Less than 8.0 mg/dL (15.0-30.0)
[2019-10-02] MEDS: Pantoprazole 80 MG in Sodium Chloride 0.9% 100 ML IVPB SCH (13:31)
[2019-10-02 13:36] LABS: Troponin I 0.011 ng/mL (< 0.028)
--- NOTE | 2019-10-02 14:34 | PDOC.HOSPP ---
- Subjective Encounter Date: 10/02/19 Encounter Time: 14:00 Subjective: Patient seen and examined for hematemesis and melena. Says he feels great, even going outside to smoke cigarettes. Denies abdominal pain, nausea an vomiting. Denies chest pain and light headedness. No new complaints. No overnight events. - Objective Vital Signs & Weight: Vital Signs (12 hours) Temp Pulse Resp BP Pulse Ox 10/02/19 11:27 98.2 F 74 17 123/80 95 10/02/19 07:42 98.5 F 85 14 116/64 95 10/02/19 03:50 98.6 F 75 16 111/83 94 L Weight Weight 230 lb 9 oz I&O: 10/01/19 10/02/19 10/03/19 06:59 06:59 06:59 Intake Total 500 Balance 500 Result Diagrams: 10/02/19 04:39 10/02/19 04:39 Hospitalist ROS - Review of Systems Constitutional: denies: fever, chills, sweats, weakness, malaise, other Respiratory: denies: cough, dry, shortness of breath, hemoptysis, SOB with excertion, pleuritic pain, sputum, wheezing, other Cardiovascular: denies: chest pain, palpitations, orthopnea, paroxysmal noc. dyspnea, edema, light headedness, other Gastrointestinal: denies: nausea, vomiting, abdominal pain, diarrhea, constipation, melena, hematochezia, other - Medication Medications: Active Medications Generic Name Dose Route Start Last Admin Trade Name Freq PRN Reason Stop Dose Admin Diphenhydramine HCl 25 mg 10/02/19 01:20 10/02/19 02:04 Benadryl PO 25 mg HSPRN PRN Administration Itching & Insomnia Sodium Chloride 1,000 mls @ 100 mls/hr 10/02/19 01:45 10/02/19 13:31 Normal Saline 0.9% IV 1,000 mls .Q10H EMMETT Administration Pantoprazole Sodium 80 mg/ 100 mls @ 10 mls/hr 10/02/19 12:45 10/02/19 13:31 Sodium Chloride IVPB 100 mls INF EMMETT Administration - Exam General Appearance: NAD, awake alert Eye: anicteric sclera Heart: RRR, no murmur, no gallops, no rubs, normal peripheral pulses Respiratory: CTAB, no wheezes, no rales, no ronchi Gastrointestinal: soft, non-tender, non-distended, normal bowel sounds, no guarding, no rigidity Psychiatric: normal affect, A&O x 3 Hosp A/P - Plan Intractable Nausea and vomiting, resolved Hematemesis/melena, stable JAMES, improved Elevated troponins, stable CKD II, stable MJ abuse, chronic Tobacco abuse Hypokalemia, resolved Hyponatremia, mild, resolved Fatty liver, chronic Bipolar HLD GERD Plan: Consult GI spoke with Dr. Oro, HH diet, NPO p midnight, EGD in am Continue IVF Add PPI IV Monitor H&H orthostatics Urine DS pendin Tobacco/smoking cessation
--- NOTE | 2019-10-02 15:54 | CON ---
DATE OF CONSULTATION: 10/02/2019 REASON FOR CONSULTATION: Hematemesis. HISTORY OF PRESENT ILLNESS: Isidro Wallace is a 39-year-old man, who was admitted to the hospital early this morning. He presented after a couple of days of repeated nausea and vomiting, mostly dry heaves, but then last night he had several episodes of hematemesis passing what he felt to be blood clots multiple times. He also had a few loose stools, which were dark around that time. Today since presentation, he is actually feeling back to normal with no nausea or abdominal pain at all and is actually feeling hungry. This is recurrent issue for him. He says that his pattern is normally every 1 to 2 months. He will have 2 to 3 days of severe nausea and repeated vomiting and will feel basically fine in between episodes except for some chronic bloating discomfort. During episodes, nothing seems to work including Pepto-Bismol or antacids. Sometimes, he will take a Nexium [id number] maybe this will help a little bit, but not really. The only thing that really does help that if he gets in a very hot shower with scalding water, as soon as he gets out of the shower, the symptoms return full force. Notably, he smokes lot of marijuana every day and this has been a pattern for a long time. Notably, the patient has similar presentation back in January 2018 here and was seen by my colleague, Dr. Perez at that time, he had extensive imaging. He had an EGD and a colonoscopy. The EGD demonstrated some erosive gastritis with biopsy showing reactive gastropathy, negative for H pylori. The colonoscopy was normal except for a single 2-mm adenoma removed from the transverse colon. Dr. Perez's impression was that the patient had cannabinoid hyperemesis syndrome. The patient has had multiple other presentations to this and other hospital since then, all with the same symptoms and this has been told by other providers that he has cannabinoid hyperemesis syndrome. He has been skeptical of this and has not cut back on his marijuana use at all. He does not drink alcohol. Upon presentation, hemoglobin, LFTs, and lipase are all normal. CT and ultrasound both demonstrate only fatty liver. No other abnormalities. REVIEW OF SYSTEMS: Full review of systems including constitutional, head, eyes, ears, nose, throat, GI, , cardiovascular, respiratory, musculoskeletal, and neurologic systems is negative except as noted in the HPI. PAST MEDICAL HISTORY: 1. Bipolar disorder. 2. Cannabinoid hyperemesis syndrome. 3. Tubular adenoma, removed in January 2018, colonoscopy. 4. GERD. 5. Hyperlipidemia. 6. Chronic back pain. 7. Staph at the groin area. SOCIAL HISTORY: The patient smokes marijuana excessively every day. He will have two packs a day of cigarettes. He denies any alcohol use. FAMILY HISTORY: Noncontributory. ALLERGIES: LITHIUM, QUETIAPINE, AND SULFA. CURRENT MEDICATIONS: None. PHYSICAL EXAMINATION: VITAL SIGNS: Temperature 98.2, pulse 74, blood pressure 123/80, and oxygen saturation 95% on room air. GENERAL: A 39-year-old man sitting up in bed comfortably, in no distress. SKIN: No jaundice. No rashes were palpable. EYES: No scleral icterus. Extraocular moves intact. ENT: Mucous membranes moist. No oral lesions. LYMPH: No submandibular or supraclavicular lymphadenopathy. THYROID: Nontender to palpation. HEART: Regular rate and rhythm. LUNGS: Clear to auscultation bilaterally. ABDOMEN: Bowel sounds present. Soft, nontender to palpation. EXTREMITIES: No peripheral edema. VESSELS: Radial pulses 2+ bilaterally. NEURO: Cranial nerves II through XII intact bilaterally. No focal deficits. LABORATORY STUDIES: WBC 17.1, hemoglobin 15.3, and platelets 277. Sodium 137, potassium 3.7, BUN 20, creatinine 1.06, calcium 9.1, and magnesium 2.3. LFTs all normal with total bilirubin 1.1, alkaline phosphatase 67, AST 31, ALT 22. Troponin 0.01. Albumin 4.4. Lipase only 22. Lactic acid 1.4. Urinalysis shows 4 to 6 wbc's. Tox screen is negative for salicylates, acetaminophen, and plasma alcohol. Urine drug screen is pending. IMAGING STUDIES: Abdominal ultrasound shows only hepatomegaly with fatty infiltration. No biliary dilation. Normal-appearing gallbladder. CT of the abdomen and pelvis from last night demonstrates stable prominent fatty liver. No other significant abnormalities. Chest x-ray from yesterday shows no acute process. ASSESSMENT AND PLAN: 1. Hematemesis, resolved today. 2. Cannabinoid hyperemesis syndrome. 3. History of erosive gastritis. I had a long discussion with the patient and his significant other that his presentation is quite consistent with cannabinoid hyperemesis syndrome. He has been told this by other providers in the past, but has been skeptical. I think he is more accepting of this diagnosis at this time. I note his unremarkable imaging and labs. This episode of hematemesis was probably from a Dayna-Adam tear, but on the other hand, he does have this history of erosive gastritis and has not been on chronic acid suppression. We are going to plan for diagnostic esophagogastroduodenoscopy tomorrow. Depending on findings, he may benefit from chronic acid suppression. But mainly, he is just going to need to stop using marijuana. I anticipate that the patient could be discharged following the procedure tomorrow. Thank you for the consultation. Please call anytime with questions or concerns. Job ID: [id number]
[2019-10-02 16:03] LABS: Amphetamine Not Detected (NotDetected); Benzodiazepine Screen Detected (NotDetected); Cocaine Metabolite Screen Not Detected (NotDetected); Medtox Reader # READER 4; Methadone Not Detected (NotDetected); Methamphetamine Not Detected (NotDetected); Opiate Screen Not Detected (NotDetected); Phencyclidine (PCP) Not Detected (NotDetected); THC/Cannabinoid Screen Detected (NotDetected); Tricyclic Screen Not Detected (NotDetected)
[2019-10-02 16:04] LABS: Barbiturates Screen Not Detected (NotDetected); Medtox Control Line Valid? VALID (VALID); Oxycodone Screen Not Detected (NotDetected)
[2019-10-03] MEDS: Pantoprazole 80 MG in Sodium Chloride 0.9% 100 ML IVPB SCH (02:22)
[2019-10-03] MEDS: Sodium Chloride 0.9% 1,000 ML IV SCH (08:00)
[2019-10-03 08:34] VITALS: TEMP 97.4
[2019-10-03] MEDS ORDERED: PROPOFOL 200 MG/20 ML VIAL ONE (10:24)
[2019-10-03] MEDS ORDERED: Fentanyl 100 MCG/2 ML VIAL ONE (11:04)
[2019-10-03] MEDS ORDERED: Promethazine HCl 25 MG/ML VIAL IM PRN (11:21)
[2019-10-03] MEDS ORDERED: Ondansetron HCl/PF 4 MG/2 ML Vial IVP PRN (11:21)
[2019-10-03] MEDS ORDERED: Promethazine HCl 25 MG/ML VIAL SLOW IVP PRN (11:21)
[2019-10-03] MEDS ORDERED: Ketorolac Tromethamine 30 MG/ML VIAL IVP PRN (11:21)
[2019-10-03 12:29] VITALS: BP 124/91
--- NOTE | 2019-10-03 15:01 | DIS ---
DATE OF ADMISSION: 10/02/2019 DATE OF DISCHARGE: 10/03/2019 DISCHARGE DISPOSITION: Home. FOLLOWUP: Follow up with primary care physician at [facility] in 1 week. DISCHARGE MEDICATIONS: Prilosec [id number]. The patient was seen on the day of discharge. Denies any new complaints. No chest pain, shortness of breath, palpitations, nausea, or vomiting reported. BRIEF HOSPITAL COURSE: The patient is a 39-year-old male with cannabis abuse, presented to the hospital with nausea, vomiting, along with significant abdominal pain. He also had some hematemesis along with dark blood clots in the stool. Please refer to the history and physical by Joyce Joseph for further details. The patient was admitted to the hospital with a diagnosis of nausea, vomiting with suspected GI bleed. His H and H were monitored closely. It remained stable. He was evaluated by Gastroenterology. He was also started on IV PPIs. He underwent EGD that was essentially negative. He was advised to discontinue cannabis abuse. Urine drug screen was positive for cannabinoid. His maximum troponin was 0.030 with a repeat troponin of 0.011. This was probably secondary to dehydration. Lifestyle modification was emphasized. He appears stable for discharge. FINAL DIAGNOSES: 1. Intractable nausea and vomiting with suspected hematemesis secondary to cannabinoid hyperemesis syndrome. 2. Acute kidney injury, resolved. His creatinine on admission was 1.83. 3. Type 2 myocardial infarction present on admission, resolved. 4. Chronic kidney disease, stage 2. 5. Cannabis abuse. 6. Tobacco dependence. The patient was counseled. 7. Hypokalemia, resolved. 8. Hyponatremia, resolved. 9. Chronic fatty liver. 10. Bipolar disorder. 11. Hyperlipidemia. 12. Gastroesophageal reflux disease. 13. The patient and the family understand the above plan of care. DIAGNOSTIC TESTS: CT scan of the abdomen and pelvis was negative for acute findings except for fatty liver. Chest x-ray was negative for infiltrate or edema. Ultrasound of the gallbladder showed hepatomegaly with fatty infiltration. Job ID: [id number]
--- NOTE | 2019-10-03 17:45 | OP ---
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 PROCEDURE PERFORMED: Esophagogastroduodenoscopy, diagnostic. INDICATIONS: 1. Hematemesis. 2. Nausea and vomiting. 3. Cannabinoid hyperemesis syndrome. 4. Prior history of erosive gastritis. MEDICATIONS: See Anesthesia record. FINDINGS: After discussion of the risks, benefits, and alternatives of the procedure, informed consent was obtained and witnessed. Pre-endoscopic cardiopulmonary examination was satisfactory. Time-out was performed before sedation was achieved. Sedation was achieved with Anesthesia assistance in the endoscopy unit. A Pentax adult upper endoscope was placed into the oropharynx and passed through the cricopharyngeus under direct visualization. The esophageal mucosa appeared normal throughout with a normal-appearing Z-line. The endoscope was advanced into the stomach. Forward and retroflexed views of the entire gastric mucosa were obtained. The gastric mucosa appears normal throughout. The endoscope was advanced through the pylorus and into the first and second portions of the duodenum, which also appeared normal. The upper endoscope was completely withdrawn and the patient allowed to recover. The patient tolerated the procedure well. There were no immediate postprocedure complications. IMPRESSION: 1. Normal esophagogastroduodenoscopy. 2. Cannabinoid hyperemesis syndrome. 3. I suspect the patient had a small Dayna-Adam tear on presentation, which has already healed. RECOMMENDATIONS: 1. Advance diet. Okay to discharge home. 2. Stop smoking all marijuana. Stop smoking tobacco. 3. He can take [id number] Prilosec or Nexium daily as needed. 4. He can follow up in the GI Clinic with Dr. Perez as needed. Job ID: [id number]
== END 2019-10-03 13:41 | disposition home or self-care (01) ==
LOC: ERS 16:59 → 2SE 10-02 00:11
PROVIDERS: ADMIT Internal Medicine; ATTEND Internal Medicine
PROC: 0DJ08ZZ Inspection of Upper Intestinal Tract, Via Natural or Artificial Opening Endoscopic (ICD-10-PCS; principal; 2019-10-03)
DX: F12.188 Cannabis abuse with other cannabis-induced disorder (principal); K92.0 Hematemesis; N18.2 Chronic kidney disease, stage 2 (mild); N17.9 Acute kidney failure, unspecified; I21.A1 Myocardial infarction type 2; F17.210 Nicotine dependence, cigarettes, uncomplicated; E87.6 Hypokalemia; E87.1 Hypo-osmolality and hyponatremia; K76.0 Fatty (change of) liver, not elsewhere classified; F31.9 Bipolar disorder, unspecified; E78.5 Hyperlipidemia, unspecified; K21.9 Gastro-esophageal reflux disease without esophagitis; G89.29 Other chronic pain; M54.9 Dorsalgia, unspecified; D72.829 Elevated white blood cell count, unspecified; Z86.010 Personal history of colon polyps; Z79.899 Other long term (current) drug therapy; Z88.2 Allergy status to sulfonamides; Z88.8 Allergy status to other drugs, medicaments and biological substances
CPT/HCPCS: 36415; 71045; 74177; 76705; 80053; 80306; 80307; 81003; 81015; 82553; 83605; 83690; 83735; 84484; 85025; 93005; 96361; 96365; 96366; 96375; C9113; G0378; J2543; J2550; J2704; J3010; J3490; Q0163; Q9967

== ENCOUNTER 2024-07-01 21:07 | Emergency (ER) | payer OTHER ==
[2024-07-01 22:20] LABS: Amphetamine Detected (NotDetected); Barbiturates Screen Not Detected (NotDetected); Benzodiazepine Screen Detected (NotDetected); Bilirubin Negative (Negative); Blood, Urine Negative (Negative); CAUTI Indications for Culture Alt mental st,lethar; Clarity Turbid (Clear); Cocaine Metabolite Screen Not Detected (NotDetected); Glucose, Urine (Dipstick) Normal (Negative); Ketone, Urine 60 mg/dL (Negative); Leukocyte Negative Leu/uL (Negative); Methadone Not Detected (NotDetected); Methamphetamine Detected (NotDetected); Nitrite Negative (Negative); Opiate Screen Not Detected (NotDetected); Oxycodone Screen Not Detected (NotDetected); Phencyclidine (PCP) Detected (NotDetected); Protein, Urine (Dipstick) 70 mg/dL (Neg-Trace); RBC/HPF 0-3 HPF (0-3); Specific Gravity, Urine 1.018 (1.002-1.036); Squamous Epithelial None Seen HPF (0-3); THC/Cannabinoid Screen Not Detected (NotDetected); Tricyclic Screen Not Detected (NotDetected); Urobilinogen Normal mg/dL (Less than 2); WBC/HPF 0-3 HPF (0-3)
[2024-07-01 22:22] LABS: ALT (SGPT) 15 U/L (8-55); AST (SGOT) 23 U/L (5-34); Albumin 3.8 g/dL (3.5-5.0); Alkaline Phosphatase 63 U/L (40-110); Anion Gap 13 mmol/L (10-20); BUN (Urea Nitrogen) 7 mg/dL (8.9-20.6); Bilirubin, Total 0.6 mg/dL (0.2-1.2); CK (CPK) 242 U/L (30-200); Calc. Creatinine Clearance 0 mL/min (70-130); Carbon Dioxide 23 mmol/L (22-29); Chloride 107 mmol/L (98-107); Estimated GFR 115; Globulin 2.2 g/dL (2.4-3.5); Glucose 97 mg/dL (70-105); Potassium 3.5 mmol/L (3.5-5.1); Sodium 139 mmol/L (136-145)
[2024-07-01 22:23] LABS: Acetaminophen Less than 10 mcg/mL (Less than 10); Alcohol Less than 10.0 mg/dL (Less than 10); Salicylate Less than 8.0 mg/dL (Less than 8.0)
[2024-07-01 22:24] LABS: #Basophils 0.06 10x3/uL (0.0-0.2); %Basophils 0.5 % (0.0-1.0); %Eosinophils 2.6 % (0.0-10.0); %Monocytes 7.9 % (0.0-10.0); %Neutrophils 59.3 % (42.0-75.0); Hematocrit 40.2 % (42.0-52.0); Hemoglobin 14.5 g/dL (14.0-18.0); Mean Corpuscular HGB CONC 36.1 g/dL (32.0-36.0); Mean Corpuscular Hemoglobin 32.2 pg (27.0-31.0); Mean Corpuscular Volume 89.1 fL (78.0-98.0); Mean Platelet Volume 9.8 fL (7.4-10.4); Platelet Count 373 10x3/uL (130-400); RBC Distribution Width 13.1 % (11.5-14.5); Red Blood Cell (RBC) Count 4.51 mill/uL (4.70-6.10)
[2024-07-01 22:35] LABS: Bacteria/HPF Rare-Few HPF (None Seen); Calcium Oxalate Crystals 2+ HPF (None Seen)
[2024-07-01 22:36] LABS: Urine Culture Reflex No No
[2024-07-02] MEDS ORDERED: Magnesium 2 GM/50 ML BAG (IN WATER) ONE (04:26)
== END 2024-07-01 22:55 | disposition home or self-care (01) ==
LOC: ERS 21:07
DX: T43.65 Poisoning by, adverse effect of and underdosing of methamphetamines (principal); T60.1X Toxic effect of halogenated insecticides; I10 Essential (primary) hypertension; F17.210 Nicotine dependence, cigarettes, uncomplicated
CPT/HCPCS: 36415; 80053; 80306; 80307; 81001; 82550; 84443; 85025; 93005; 99284